=== PATIENT | female | born 2000 | race Caucasian/White ===

== ENCOUNTER 2022-01-29 03:42 | Inpatient (IN) | payer SELFPAY, OTHER ==
[2022-01-29] VITALS (45 sets, daily range): BP systolic 103–139; BP diastolic 59–80; PULSE 81–110; RESP 16; TEMP 36.3–37.4; O2SAT 98–100; BMI 25.1
[2022-01-29 03:15] LABS: ROM Internal Control Test YES-OK TO RESULT pt. (Internal QC)
[2022-01-29 03:16] LABS: ROM Patient Test POSITIVE (Negative)
[2022-01-29] MEDS: Lactated Ringers 1,000 ML 50 ML IV (04:15)
[2022-01-29] MEDS: LACTATED RINGERS 500 ML 999 ML IV ×2 (04:16→07:41)
[2022-01-29 04:25] LABS: Mucous, Urine 0 SEEN /hpf (<or=2+); Red Blood Cells-Urine 0 SEEN /hpf (0-5)
[2022-01-29 04:28] LABS: Absolute Lymphocyte Count 1.83 X10^3/uL (0.83-4.51); Absolute Neutrophil Count 16.5 X10^3/uL (2.0-7.7); Basophil# 0.05 X10^3/uL; Basophil% 0.3 % (0-1); Eosinophil# 0.02 X10^3/uL; Eosinophils% 0.1 % (0-5); Hematocrit 38.7 % (37-47); Hemoglobin 12.9 g/dL (12.0-15.0); Lymphocyte # 1.83 X10^3/ul (0.83-4.51); Lymphocyte % 9.3 % (19-41); Mean Corp Hgb Conc 33.3 g/dL (32-36); Mean Corpuscular Hgb 31.9 pg (27.0-32.0); Mean Corpuscular Volume 95.8 fL (81-99); Mean Platelet Vol. 10.3 fl (6.2-12.0); Monocyte# 1.08 X10^3/uL; Monocyte% 5.5 % (0-10); NRBC Flagged by Analyzer 0 % (0-5); Neutrophil # 16.48 X10^3/uL (2.7-7.7); Neutrophil % 83.9 % (47-70); Platelet Count 185 K/mm3 (150-450); RBC Distribution Width CV 12.4 % (11.6-14.6); RBC Distribution Width SD 43.1 fl (35.1-43.9); Red Blood Count 4.04 M/mm3 (4.2-5.4); White Blood Count 19.6 K/mm3 (4.4-11.0)
[2022-01-29] MEDS: Oxytocin 15 Units/NS 250ml 15 UNITS/250 ML IV.SOLN 2 UNITS IV (04:31)
[2022-01-29 04:58] LABS: Color, Urine Yellow (Yellow); Glucose, Dipstick Normal (Normal); Ketone-Dipstick Negative (Negative); Leukocyte Esterase-Dipstick 25 /ul (Negative); Nitrite-Dipstick Negative (Negative); Occult Blood-Urine 25 /ul (Negative); Protein-Dipstick 15 mg/dl (Negative); Urine Bilirubin Dipstick Negative (Negative); Urine Clarity Clear (Clear); Urine Urobilinogen Normal (Normal)
[2022-01-29 05:18] LABS: Bacteria 1+ /hpf (None Seen); Squamous Epithelial Cells - UA 0-5 SEEN /hpf (5-10); White Blood Cells 0-5 SEEN /hpf (0-5)
[2022-01-29 05:21] LABS: Amphetamine Urine VISTA NEGATIVE (<1000 ng/mL); Barbiturate Urine VISTA NEGATIVE (< 200 ng/mL); Benzodiazepine Urine VISTA NEGATIVE (< 200 ng/mL); Cocaine Urine VISTA NEGATIVE (< 300 ng/mL); Ecstacy Urine VISTA NEGATIVE (< 500 ng/mL); Methadone Urine VISTA NEGATIVE (< 300 ng/mL); PCP Urine VISTA NEGATIVE (< 25 ng/mL); THC Urine VISTA NEGATIVE (< 50 ng/mL); Vista UDS pH Range 7
[2022-01-29] MEDS: fentaNYL-bupivacaine (epidural) 100 ML BAG EPIDURAL ×2 (05:42→09:54)
[2022-01-29 06:22] LABS: Chlamydia Trachomatis by PCR Negative (Negative); Neisserai gonorrhoeae by PCR Negative (Negative); Probe Check PASS; Sample Adequacy Control PASS; Specimen Processing Control PASS
[2022-01-29 06:53] LABS: Group B Strep DNA By PCR Negative (Negative); Internal Control PASS; Probe Check PASS; Specimen Processing Control PASS
[2022-01-29] MEDS: Ondansetron 4 MG/2 ML Vial IV (07:28)
[2022-01-29 08:11] LABS: Rubella IgG Equiv (Nonreactive); Syphilis Antibodies Non-reactive
[2022-01-29 08:15] LABS: HIV - WCH Non-Reactive (Nonreactive); Hepatitis B Surface Antigen Non-Reactive (Nonreactive); Hepatitis C Antibody Non-Reactive (Nonreactive)
--- NOTE | 2022-01-29 08:53 | HP.PCM.OB_ITS ---
HPI - General General Date of Admission: 01/29/22 Date of Service: 01/29/22 Chief Complaint: Prolonged rupture of membranes, uterine contractions HPI Narrative WILMAN BENJAMIN, is a 22 F who presents at 40 weeks gestation from home after being ruptured for over 24 hours. She has been seeing a floor layer tile during the , and was planning on a home . No care other than a limited ultrasound and a T&S. She reports rupturing for clear fluid on 01/28/22 at 1:30 am. She has been regularly reagan and is uncomfortable. She offers no other complaints today. PFSH PFSH Allergy/AdvReac Type Severity Reaction Status Date / Time No Known Allergies Allergy Verified 01/29/22 02:53 Social History Smoking Status: Never smoker History Elective abortions Hx Para 0 Spontaneous abortions Hx # Term Pregnancies Ectopic pregnancies Hx # Pregnancies Multiple births # of living children NST FHR Rate Baby A FHR Category:: Category I Uterine Activity:: On admission uterine ctx's q 3-6 min. Once on 4 of pitocin ctx's q 1-2 min Vital Signs Vital Signs Vital Signs: 01/29/22 02:38 01/29/22 02:38 01/29/22 02:38 Temperature 97.3 F L Pulse Rate 100 Blood Pressure 118/70 BP Systolic 118 BP Diastolic 70 Pulse Ox 01/29/22 05:10 01/29/22 05:10 01/29/22 05:11 Temperature 98.1 F Pulse Rate 96 Blood Pressure 120/80 BP Systolic 120 BP Diastolic 80 Pulse Ox 01/29/22 05:11 01/29/22 05:16 01/29/22 05:16 Temperature Pulse Rate 96 Blood Pressure 118/71 BP Systolic 118 BP Diastolic 71 Pulse Ox 100 01/29/22 05:16 01/29/22 05:21 01/29/22 05:21 Temperature Pulse Rate 100 Blood Pressure BP Systolic BP Diastolic Pulse Ox 100 100 01/29/22 05:21 01/29/22 05:21 01/29/22 05:26 Temperature Pulse Rate 93 97 Blood Pressure 120/73 BP Systolic 120 BP Diastolic 73 Pulse Ox 01/29/22 05:26 01/29/22 05:26 01/29/22 05:26 Temperature Pulse Rate 100 Blood Pressure 117/79 BP Systolic 117 BP Diastolic 79 Pulse Ox 99 01/29/22 05:31 01/29/22 05:31 01/29/22 05:32 Temperature Pulse Rate 92 Blood Pressure 119/74 BP Systolic 119 BP Diastolic 74 Pulse Ox 100 01/29/22 05:32 01/29/22 05:36 01/29/22 05:36 Temperature Pulse Rate 90 97 Blood Pressure BP Systolic BP Diastolic Pulse Ox 100 01/29/22 05:37 01/29/22 05:37 01/29/22 05:41 Temperature Pulse Rate 93 94 Blood Pressure 114/68 BP Systolic 114 BP Diastolic 68 Pulse Ox 01/29/22 05:41 01/29/22 05:42 01/29/22 05:42 Temperature Pulse Rate 93 Blood Pressure 109/68 BP Systolic 109 BP Diastolic 68 Pulse Ox 100 01/29/22 05:45 01/29/22 05:46 01/29/22 05:46 Temperature Pulse Rate 98 Blood Pressure 112/71 BP Systolic 112 BP Diastolic 71 Pulse Ox 100 01/29/22 05:51 01/29/22 05:51 01/29/22 05:52 Temperature Pulse Rate 88 Blood Pressure 116/73 BP Systolic 116 BP Diastolic 73 Pulse Ox 100 01/29/22 05:52 01/29/22 05:56 01/29/22 05:56 Temperature Pulse Rate 89 92 Blood Pressure BP Systolic BP Diastolic Pulse Ox 100 01/29/22 05:56 01/29/22 05:56 01/29/22 06:01 Temperature Pulse Rate 88 87 Blood Pressure 120/71 BP Systolic 120 BP Diastolic 71 Pulse Ox 01/29/22 06:01 01/29/22 06:02 01/29/22 06:02 Temperature Pulse Rate 90 Blood Pressure 118/77 BP Systolic 118 BP Diastolic 77 Pulse Ox 100 01/29/22 06:05 01/29/22 06:05 01/29/22 06:06 Temperature Pulse Rate 94 88 Blood Pressure 115/76 BP Systolic 115 BP Diastolic 76 Pulse Ox 01/29/22 06:06 01/29/22 06:07 01/29/22 06:07 Temperature Pulse Rate 91 Blood Pressure 116/78 BP Systolic 116 BP Diastolic 78 Pulse Ox 100 01/29/22 06:11 01/29/22 06:11 01/29/22 06:11 Temperature Pulse Rate 89 Blood Pressure 117/73 BP Systolic 117 BP Diastolic 73 Pulse Ox 99 01/29/22 06:11 01/29/22 06:16 01/29/22 06:16 Temperature Pulse Rate 89 86 Blood Pressure 113/72 BP Systolic 113 BP Diastolic 72 Pulse Ox 01/29/22 06:16 01/29/22 07:08 01/29/22 07:08 Temperature 97.9 F Pulse Rate Blood Pressure 112/70 BP Systolic 112 BP Diastolic 70 Pulse Ox 98 01/29/22 07:08 01/29/22 07:09 Temperature 97.9 F Pulse Rate 93 Blood Pressure BP Systolic BP Diastolic Pulse Ox Weight Weight: 133 lb Body Mass Index (BMI) 25.1 Labs Labs Labs: Blood Type O POSITIVE Antibody Screen NEGATIVE Hct 38.7 % (37-47) Hgb 12.9 g/dL (12.0-15.0) Syphilis Total Ab Non-reactive Rubella IgG Antibody Equiv (Nonreactive) Hep Bs Antigen Non-Reactive (Nonreactive) HIV 1&2 Antibody Non-Reactive (Nonreactive) Group B Strep DNA Negative (Negative) Assessment & Plan (1) 40 weeks gestation of : PLAN: Admit to L&D for further management. She is 1 cm on admission and has remained 1 cm after over 24 hours of being ruptured for clear fluid. No care so obtained panel, beside glucose, rapid GBS and GBS culture on admission. Discussed option for a section with the patient and her given prolonged rupture, no cervical change, and being remote from delivery. Discussed risk of infection. Rapid GBS is negative, category 1 tracing and currently afebrile. The pt declines a section and would like to try for a vaginal delivery which is reasonable given stable at this time. Recommended getting an epidural for pain control and will start pitocin as well. EFW expected to be < 4500 g based on exam and pelvis adequate. Discussed plan with day team. (2) Prolonged rupture of membranes: (3) No care in current :
[2022-01-29 11:15] LABS: Bedside Glucose 91 mg/dL (74-106)
[2022-01-29] MEDS: Oxytocin 15 Units/NS 250ml 15 UNITS/250 ML IV.SOLN 83 UNITS IV (12:39)
--- NOTE | 2022-01-29 13:02 | EX.PCM.OBRPT ---
Assessment & Plan (1) (spontaneous vaginal delivery): (2) Laceration, obstetrical, second degree: Vaginal Delivery Maternal Presentation Maternal Presentation: Spontaneous Rupture of Membranes Maternal Presentation: Patient is a at 40.1 weeks gestation that presented from home after prolonged rupture of membranes and no cervical change while attempting a home with playground attendant. Operative Information Date of Procedure: 01/29/22 Pre-Operative Diagnosis: Term gestation, SROM Post-Operative Diagnosis: Same, live female Surgery / Procedure Performed: Spontaneous Vaginal Delivery Type of Anesthesia: Epidural Drain: Sands to straight drain Estimated Blood Loss: 300 Time of Delivery: 12:38 Findings Description of Procedure: Patient pushing and becoming exhausted. Dr. Khoury called for evaluation for possible vacuum assist. Infant head delivered with accelerated maternal effort. Loose cord around neck reduced. Anterior shoulder delivered followed by remainder of . Vigorous female placed on maternal abdomen and attended to by nursing staff. Pitocin IV started for active management of the third stage of labor. 3 vessel cord clamped and cut after slight delay. Cord blood collected. Placenta delivered spontaneously and intact. Fundus firm 1 below U. Second degree laceration repaired in usual fashion using Vicryl rapid 3-0. Hemostasis obtained. EBL 300 cc. APGARS 8/9. Patient and bonding well at this time. Dr. Cornelius present in room for delivery. Presentation: Vertex and ANDREEA Amniotic Membrane Rupture Type: Spontaneous Time of Membrane Rupture: 0100 on 01/28/22 Amniotic Fluid Description: Clear Placental Delivery Description: Spontaneous Placenta Disposition: [facility] Cord Vessel Description: 3 Vessels Cord Entanglement: Around neck x 1, loose Nuchal Cord Compression: Without compression Cord Gases: ABG and VBG A Gender: Female (1 minute): 8 (5 minute): 9 Delayed Cord Clamping: Yes Post Vaginal Delivery Medications Given After Delivery: IV Pitocin Episiotomy Description: None Laceration: 2nd degree Complication Complications: None
[2022-01-29] MEDS: Acetaminophen 500 MG Tablet 1000 MG PO (13:56)
[2022-01-29] MEDS: Ibuprofen 600 MG Tablet PO (16:50)
[2022-01-30] VITALS: BP 106/72; PULSE 87; RESP 14; TEMP 36.4; O2SAT 99
[2022-01-30 04:40] VITALS: BP 93/55; PULSE 77; RESP 16; TEMP 36.4; O2SAT 97
[2022-01-30] MEDS: Acetaminophen 500 MG Tablet 1000 MG PO (05:10)
--- NOTE | 2022-01-30 06:40 | PCM.PN.OB ---
Subjective Subjective Patient seen at bedside. Feeling good. Denies any pain. Ambulating and voiding without difficult. with support. Denies any headache, dizziness, SOB or CP. Desires dishcharge home later tonight. Objective Data Objective Data Vital Signs: Vital Signs Temp Pulse Resp BP Pulse Ox O2 Del Method 97.6 F L 77 16 93/55 L 97 Room Air 01/30/22 04:40 01/30/22 04:40 01/30/22 04:40 01/30/22 04:40 01/30/22 04:40 01/30/22 04:40 Oxygen Delivery Method Room Air Weight: 133 lb Body Mass Index (BMI) 25.1 Intake & Output: Intake and Output for Last 24 Hours 01/28/22 01/29/22 01/30/22 23:59 23:59 23:59 Intake Total 1679.01 / 1679.01 Output Total 300 / 300 Balance 1379.01 / 1379.01 Lab / Micro Data Result Diagrams: 01/29/22 04:15 Labs: Laboratory Results - last 24 hr 01/29/22 04:15: Syphilis Total Ab Non-reactive, Rubella IgG Antibody Equiv 01/29/22 04:15: Hep Bs Antigen Non-Reactive, Hepatitis C Antibody Non-Reactive, HIV 1&2 Antibody Non-Reactive 01/29/22 04:20: Group B Strep DNA Negative, Specimen Comment Not Reportable 01/29/22 04:22: POC Glucose 91 Micro: Microbiology 01/29/22 04:05 Nasal Secretion SARS-CoV-2 Antigen (Rapid) - Final ROS Eyes Eyes: Denies blurry vision Cardiovascular Cardiovascular: Reports none; Denies chest pain at rest, chest pain with activity or dizziness Respiratory/Chest Respiratory/Chest: Denies cough or dyspnea Gastrointestinal Gastrointestinal: Reports none and other; Denies diarrhea or vomiting Genitourinary Genitourinary: Denies dysuria Musculoskeletal Musculoskeletal: Reports none Integumentary Integumentary: Reports none; Denies rash Neurologic Neurologic: Denies dizziness, headache(s) or other visual disturbances Psychiatric Psychiatric: Reports none Physical Exam Const alert and no apparent distress General Appearance: cooperative and comfortable Exam Limitations: no limitations HEENT normocephalic Eyes General Eye: normal appearance of both eyes Neck full ROM General: normal visual inspection Chest Chest: symmetrical chest wall rise Resp normal respiratory effort and normal air movement Effort and Inspection: symmetric chest movement Auscultation: clear to auscultation bilaterally Cardio regular rate and regular rhythm GI normal to inspection, nondistended, normoactive bowel sounds Back/Spine normal ROM Extremity full ROM and no calf tenderness General Extremity: normal exam except as noted Skin no rashes or lesions noted Neuro CN's II-XII intact bilaterally Psych mental status grossly normal Assessment & Plan (1) (spontaneous vaginal delivery): (2) Laceration, obstetrical, second degree: (3) Care and examination of lactating mother: PLAN: Plan PPD 1 Routine care support Anticipate discharge home later today
--- NOTE | 2022-01-30 07:37 | NURSING ---
Pt rubella resulted as equivocal. this RN asked if pt would like the MMR vaccine and pt refused.
[2022-01-30] MEDS: Ibuprofen 600 MG Tablet PO (09:14)
[2022-01-30 10:17] VITALS: BP 102/65; PULSE 90; RESP 16; TEMP 36.2; O2SAT 98
[2022-01-30 13:08] VITALS: BP 105/64; PULSE 81; RESP 16; TEMP 36.1; O2SAT 97
--- NOTE | 2022-01-30 13:39 | DCINST_ITS ---
Discharge Instructions Diet Discharge Diet: No restrictions Activity Discharge Activity: Return to Normal Activity, May Shower and May Take a Tub Bath May resume sexual activity in: 4-6 weeks Weight Bearing Status: Weight bearing as tolerated Dressing / Incision Call your doctor if you observe: Inability to urinate, Using more than 1 pad per hour, Shortness of breath, Dizziness, Swelling in the ankles, Chest pain, Calf discomfort and Uncontrolled pain Follow Up Care Please Follow Up With: critical care technician When: Within 10 days Test Results: Test results from this visit will be discussed in further detail at your follow- up appointment, if applicable. Discharge Plan Admission Admit Date/Time: 01/29/22 03:42 Primary Reason for Your Visit: Labor and Delivery Attending Provider: Cher Khoury Primary Care Provider: Care Physician,No Primary Discharge Orders/Prescriptions Referrals / Follow Up: Gayle Rivera CNM [Med Staff - [facility] Practice Prof] - Soledad Nayak CNM [Non-Staff] - Care Physician,No Primary [Primary Care Provider] - Disposition Disposition (needs filled in before D/C Order can be placed): Home, Self Care
== END 2022-01-30 14:50 | disposition home or self-care (01) | DRG 807 ==
LOC: WPOUT 03:43 → WP 03:43
PROVIDERS: Obstetrics & Gynecology; Admitting Provider Obstetrics & Gynecology; Visit Provider Obstetrics & Gynecology
DX: O42.12 Full-term premature rupture of membranes, onset of labor more than 24 hours following rupture (principal); Z37.0 Single live birth; O69.81X0 Labor and delivery complicated by cord around neck, without compression, not applicable or unspecified; O70.1 Second degree perineal laceration during delivery; Z3A.40 40 weeks gestation of pregnancy
CPT/HCPCS: 59025; 59050; 80307; 81001; 82962; 84112; 85025; 86703; 86762; 86780; 86803; 86850; 86900; 86901; 87081; 87340; 87426; 87491; 87591; 87653; 99218; J7120; G0378; J2405